=== PATIENT | female | born 1945 | race Two or more races ===

== ENCOUNTER 2018-12-20 16:34 | Emergency (ER) | payer BC ==
[~2018-12-20] VITALS: Ht 162.6 cm; Wt 65.8 kg
[2018-12-20 16:51] VITALS: BP 128/68
[2018-12-20] MEDS ORDERED: ACETAMINOPHEN ES 500 MG TABLET PO ONE (17:30)
[2018-12-20] MEDS ORDERED: ACETAMINOPHEN ES 500 MG TABLET ONE (17:38)
== END 2018-12-20 19:16 | disposition home or self-care (01) ==
LOC: ER 16:34
DX: S42.292A Other displaced fracture of upper end of left humerus, initial encounter for closed fracture (principal); I11.0 Hypertensive heart disease with heart failure; I50.9 Heart failure, unspecified; Z88.6 Allergy status to analgesic agent; Z60.2 Problems related to living alone; W22.8XXA Striking against or struck by other objects, initial encounter; Y93.89 Activity, other specified; Y92.89 Other specified places as the place of occurrence of the external cause; Y99.8 Other external cause status
CPT/HCPCS: 73030-TC